=== PATIENT | male | born 1980 | race Caucasian/White ===

== ENCOUNTER 2022-02-15 17:34 | Emergency (ER) | payer SELFPAY ==
[~2022-02-15] VITALS: Ht 165.1 cm; Wt 72.1 kg
[2022-02-15 17:39] VITALS: BP 116/73
--- NOTE | 2022-02-15 18:03 | NUR ---
41 y/o male bib self with c/o bug bite to left forearm. Patient has an open area with heat, redness and swelling to the area. Patient denies pain at this time. Patient states it started on Saturday. Patient states he has been picking the area. Patient is unsure what bit him. Medical History:Denies NKDA
--- NOTE | 2022-02-15 18:30 | NUR ---
CLAUDIO Kiran at bedside evaluating patient.
[2022-02-15] MEDS ORDERED: IBUP-2230 PO (18:38)
[2022-02-15] MEDS ORDERED: CEPH-588 PO (18:38)
--- NOTE | 2022-02-15 18:50 | NUR ---
no nursing interventions done at this time
--- NOTE | 2022-02-15 18:51 | NUR ---
The patient's care was reviewed and supervised by Radha Handy, RN, RN.
--- NOTE | 2022-02-15 18:51 | NUR ---
NO NURSING INTERVENTIONS RENDERED. Patient discharged with v/s stable. Written and verbal after care instructions given. Patient alert, oriented and verbalized understanding of instructions. Ambulatory with steady gait. All questions addressed prior to discharge. ID band removed. Patient advised to follow up with PMD. Rx of KEFLEX AND IBUPROFEN given. Opportunity to ask questions provided and answered.
== END 2022-02-15 18:51 | disposition home or self-care (01) ==
LOC: MED 17:34
DX: S50.361A Insect bite (nonvenomous) of right elbow, initial encounter (principal); L08.9 Local infection of the skin and subcutaneous tissue, unspecified; Z79.899 Other long term (current) drug therapy; W57.XXXA Bitten or stung by nonvenomous insect and other nonvenomous arthropods, initial encounter; Y93.89 Activity, other specified; Y92.89 Other specified places as the place of occurrence of the external cause; Y99.8 Other external cause status
CPT/HCPCS: 99283